=== PATIENT | female | born 1945 | race Caucasian/White ===

== ENCOUNTER 2022-03-08 15:04 | Inpatient (IN) | payer MEDICARE, OTHER, SELFPAY ==
[2022-03-08] VITALS (20 sets, daily range): BP systolic 92–128; BP diastolic 43–88; PULSE 75–86; RESP 12–23; TEMP 36.6; O2SAT 98–100; BMI 22.8
--- NOTE | ~2022-03-08 | CT_ITS ---
EXAMINATION: CTA chest PE abdomen pel DATE: 03/08/2022 17:11 INDICATION: d dimer TECHNIQUE: Computed tomography angiography (CTA) of the chest was performed with 100 mL Omnipaque-350 intravenous contrast timed to evaluate the pulmonary arteries, followed by portal venous phase imagi ng of the abdomen and pelvis. Coronal maximum intensity projection 3D-reconstructions were created by the technologist. The dose-length product (DLP) was 476.29 mGy-cm. Automated exposure control and it erative reconstruction technique were employed. COMPARISON: None. FINDINGS: CHEST: Lung parenchyma and airways: Clear. Pleura: Unremarkable. Thoracic inlet, axillae and chest wall: Unremarkable. Thoracic aorta: Normal. Mediastinum: Normal. Heart and pericardium: Normal. Coronary artery calcifications: Absent. Thoracic bones: Diffusely sclerotic bones. Pulmonary arteries: Study quality: Adequate. No pulmonary emboli detected. ABDOMEN/PELVIS: Liver: Normal. Biliary/Gallbladder: Gallbladder is absent. No bile duct dilation. Pancreas: Atrophy. Spleen: Granulomatous calcifications. Adrenals:No mass. Kidneys: No suspicious mass. Bilateral atrophy. Bilateral hypodensities that are too small to charact erize. Bilateral nonobstructing calculi. GI tract: Normal small bowel. Diffusely dilated large bowel, without wall thickening or a specific tr ansition point. Mostly fluid-filled large bowel. Appendix not visualized Mesentery/Peritoneum: No ascites, mass, or free air. Retroperitoneum: No mass. Pelvis: Pelvic organs are within normal limits. Soft Tissues: Soft tissues and body wall unremarkable. Abdominopelvic bones: Diffusely sclerotic bones. IMPRESSION: No CT evidence of acute pulmonary embolus. Acute versus chronic large bowel dilation without specific obstructing lesion or transition point identified. Fluid-filled colon as can be seen with diarrheal illness. Diffusely sclerotic bones, correlate with history of primary malignancy, hematologic maligna ncy, metabolic abnormalities or medication usage. Reviewed, dictated and finalized at location K. IMPRESSION: No CT evidence of acute pulmonary embolus. Acute versus chronic large bowel dil ation without specific obstructing lesion or transition point identified. Fluid -filled colon as can be seen with diarrheal illness. Diffusely sclerotic bones, correlate with history of primary malignancy, hematologic malignancy, metaboli c abnormalities or medication usage.
--- NOTE | ~2022-03-08 | XR_ITS ---
EXAMINATION: XR chest 1V portable Exam Date/Time: 03/08/2022 15:25 CDT HISTORY: chest pain, sob Comparison: None available. RESULT: Lines, tubes, and devices: Cholecystectomy and GE junction surgical clips. Lungs and pleura: Senescent change, otherwise clear. Cardiomediastinal silhouette: Stable. Other: No acute osseous or upper abdominal finding. IMPRESSION: No acute cardiopulmonary process. Reviewed, dictated and finalized at location K.
--- NOTE | ~2022-03-08 | XR_ITS ---
EXAM: XR shoulder RT min 2V DATE: 03/08/2022 15:36 HISTORY: pain . COMPARISON: None available. FINDINGS: Decreased mineralization. No acute fracture or dislocation. No lytic or blastic lesion. Chani int spaces are maintained. No erosion or periosteal change. Right basilar atelectasis. IMPRESSION: No acute osseous finding in the right shoulder. Reviewed, dictated and finalized at location K.
--- NOTE | ~2022-03-08 | MR_ITS ---
EXAMINATION: MR shoulder RT wo con DATE: 03/09/2022 14:59 INDICATION: Right shoulder pain. TECHNIQUE: Magnetic resonance imaging (MRI) of the right shoulder was performed without intravenous c ontrast. Sequences included axial PD-weighted FS FSE, coronal oblique PD-weighted FS FSE and T2-weigh ulysses FS FSE, and sagittal oblique T2-weighted FS FSE and T1-weighted FSE. COMPARISON: Right shoulder radiographs 03/08/2022 FINDINGS: Coracoacromial arch: The acromion undersurface is flat in morphology (type I). There is mild acromioclavicular joint osteo arthritis. There is mild subacromial/subdeltoid bursitis. Rotator cuff: There is severe tendinopathy of the conjoined portion of supraspinatus and infraspinatus tendons. The re is a partial thickness articular and bursal sided tear of the conjoined portion of supraspinatus a nd infraspinatus tendons measuring 8 mm proximal to distal by 9 mm anterior to posterior by 50% tendo n thickness. Teres minor tendon is normal. There is mild subscapularis tendinopathy. There is no asym metric fatty atrophy of the rotator cuff muscle bellies. There is edema-like marrow signal intensity involving the greater and lesser tuberosities, consistent with stress reaction. Biceps tendon and glenoid labrum: Biceps tendon is in bicipital groove. There is mild intra-articular biceps tendinopathy. There is deg eneration of the glenoid labrum without well-defined tear. Fluid: There is a small glenohumeral joint effusion. Bones/cartilage: Glenoid cartilage is normal. Humeral head cartilage is normal. IMPRESSION: 1. Partial-thickness rotator cuff tear. 2. Small glenohumeral joint effusion. 3. Mild subacromial/subdeltoid bursitis. 4. Mild acromioclavicular joint osteoarthritis. 5. Mild intra-articular biceps tendinopathy. Reviewed, dictated and finalized at location A.
--- NOTE | 2022-03-08 15:19 | ECG_ITS ---
Measurements Intervals [place] Rate: 83 P: 54 PA: 162 QRS: 2 QRSD: 92 T: 51 QT: 366 QTc: 431 Interpretive Statements SINUS RHYTHM MINIMAL Q WAVES- INFERIOR LEADS BASELINE ARTIFACT- II, III, AVF BORDERLINE ECG NO PREVIOUS ECG AVAILABLE FOR COMPARISON Electronically Signed On 03-08-2022 21:45:51 CDT by Kendall Howard D.O.
--- NOTE | 2022-03-08 15:22 | ED.GENADULT ---
HPI - General Adult General Chief complaint: Recheck/Abnormal Lab/Rx Stated complaint: dyspnea/ low BP Time Seen by Provider: 03/08/22 15:09 Source: patient, family and RN notes reviewed Mode of arrival: wheelchair Limitations: no limitations History of Present Illness HPI narrative: This is a 76 year old female with history of chronic kidney disease who presents for evaluation of shortness of breath and right shoulder pain. Patient woke up with right shoulder pain 4 days ago. Her pain radiates down her arm and it has been constant. This pain is worse with movement but she denies any injury . She also reports shortness of breath that has been present with exertion for 3 weeks. Her states patient's has been fatigue and snippy for 1-2 weeks. She started to complain of pressure pain in her midback and chest pain yesterday that has been intermittent. She was not feeling well today so she called her grand daughter to her home. They report her blood pressure in both arms were 80/50 so she came to ER. Related Data Allergies Allergy/AdvReac Type Severity Reaction Status Date / Time ciprofloxacin [From Cipro] Allergy Intermediate unknown Verified 03/08/22 15:19 penicillin G Allergy Unknown unknown Verified 03/08/22 15:19 Review of Systems Review of Systems: All systems reviewed & are unremarkable except as noted in HPI and below Constitutional: Constitutional: Denies chills, Reports fatigue and Denies fever(s) Cardiovascular: Cardiovascular: Denies chest pain Respiratory: Respiratory: Denies chest congestion, Denies cough and Reports dyspnea Gastrointestinal: Gastrointestinal: Denies abdominal pain, Reports nausea and Denies vomiting Musculoskeletal: Musculoskeletal: Reports back pain [facility] Past Medical History Medical History (Updated 03/08/22 @ 18:52 by Echo Kumar MD) Chronic kidney disease Surgical History Surgical History (Updated 03/08/22 @ 16:02 by Echo Kumar MD) History of cholecystectomy Social History Social History (Updated 07/25/20 @ 10:50 by Reina Elizondo CMA) Smoking status: Never smoker Second hand tobacco smoke exposure: No Alcohol intake: never Substance use: never Substance use type: does not use Exam Const: General: alert Nutritional Appearance: thin Orientation/consciousness: patient oriented x3 Limitations: no limitations HENMT: Head: normal to inspection Eyes: EOM: EOMs intact bilaterally Resp: Effort & Inspection: normal respiratory effort Auscultation: clear to auscultation bilaterally Cardio: Rate: regular rate Rhythm: regular rhythm Heart sounds: no murmurs GI: GI Palp: Yes Soft to palpation, Yes Tenderness to palpation present (GI) (RUQ, epigastric) and No Guarding due to palpation present (GI) Auscultation: normal bowel sounds Back/Spine/Pelvis: Back: no CVA tenderness Skin: General skin exam: normal color Rashes: no rashes Wounds: no wounds Neuro: General: patient oriented x3, moves all extremities and CN's II-XI intact bilaterally Extrem: General: no pedal edema Other: bilateral brachial palpable pulses Psych: Mental Status: mental status grossly normal Affect: normal affect Course Reevaluation(s) Reevaluation #1: I Discussed with patient that she was found to have some electrolyte abnormalities and will be admitted for supplementation. 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 I Discussed case with Lanny who accepts to service. Date: 03/08/22 Time: 18:00 Vital Signs Vital signs: Vital Signs Pulse Rate 86 03/08/22 15:08 Respiratory Rate 18 03/08/22 15:08 Blood Pressure 128/64 03/08/22 15:08 Pulse Oximetry 99 03/08/22 15:08 Oxygen Delivery Room Air 03/08/22 15:08 Pulse Rate 79 03/08/22 18:47 Respiratory Rate 18 03/08/22 18:47 Blood Pressure 112/62 03/08/22 18:47 Pulse Oximetry 100 03/08/22 18:47 Oxygen Delivery Room Air
[2022-03-08 15:27] LABS: Basophils Percent Auto 0.3 % (0.2-1.2); Eosinophils Percent Auto 0.7 % (0-4.4); Hemoglobin 10.4 g/dL (12.0-15.0); Immature Granulocyte Absolute 0.04 K/mm3 (0.00-0.031); Immature Granulocyte Percent A 0.7 % (0-0.5); Lymphocytes Absolute Auto 0.86 K/mm3 (0.9-3.2); Mean Corpuscular HGB Conc 30.6 g/dl (32-36); Mean Corpuscular Volume 101.5 fl (80-100); Mean Platelet Volume 9.8 fl (7.4-10.4); Monocytes Absolute Auto 0.4 K/mm3 (0.1-0.6); Monocytes Percent Auto 5.7 % (2.6-8.5); Neutrophils Absolute Auto 4.8 K/mm3 (1.3-6.7); Neutrophils Percent Auto 78.6 % (45.5-73.1); Platelet Count Result 181 k/mm3 (150-375); Red Blood Count 3.35 M/mm3 (4.2-5.4); Red Cell Distribution Width 14.2 % (11.5-14.5); White Blood Count 6.1 K/mm3 (4.5-10.0)
[2022-03-08] MEDS: ONDANSETRON INJ 4 MG/2 ML VIAL IV PUSH (15:31)
[2022-03-08] MEDS: SODIUM CHLORIDE 0.9% IV 1,000 ML 999 ML IV CONT (15:32)
[2022-03-08 15:42] LABS: Alanine Aminotransferase 32 U/L (6-35); Albumin Level 3.7 g/dL (3.5-5.1); Alkaline Phosphatase 74 U/L (38-126); Anion Gap 11 mmol/L (8-16); Aspartate Amino Transferase 26 U/L (14-36); Bilirubin,Total 0.6 mg/dL (0.2-1.3); Blood Urea Nitrogen 21 mg/dL (7-17); Calcium 7.4 mg/dL (8.4-10.2); Carbon Dioxide 17 mmol/L (22-30); Chloride 112 mmol/L (98-107); Estimated CRCL calculation 26 ml/min; Estimated Glomerular Filt Rate 37; Glucose 107 mg/dL (65-110); Lipase 127 U/L (23-300); Magnesium 0.7 mg/dL (1.6-2.3); Potassium 2.9 mmol/L (3.4-5.0); Sodium 140 mmol/L (137-145)
[2022-03-08 15:47] LABS: INR 1.5; Prothrombin Time 17.1 Seconds (11.1-14.7)
[2022-03-08 15:48] LABS: Partial Thromboplastin Time 32.9 SECONDS (22.3-36.8)
[2022-03-08 15:54] LABS: NT Pro B Type Natriuretic Pept 499 pg/mL (5-100); Troponin I < 0.012 ng/mL (0.000-0.034)
[2022-03-08 15:56] LABS: Lactic Acid Reflex 1.4 mmol/L (0.7-2.0)
[2022-03-08 16:19] LABS: Bacteria Urine Trace /hpf; Mucus Urine Rare /lpf; RBC Urine 0-2 /hpf (0-2); Squamous Epithelial Cell Urine Few /hpf (Few); WBC Urine 0-3 /hpf
[2022-03-08 16:24] LABS: SARS-CoV-2 RNA PCR Negative
[2022-03-08 16:43] LABS: D Dimer 0.63 ug/mL (<0.48)
[2022-03-08 17:07] LABS: Appearance Urine Clear (Clear); Bilirubin Urine Negative (Negative); Blood Urine Negative (Negative); Color Urine Yellow (Yellow); Glucose Urine UA Negative (Negative); Ketones Urine Negative (Negative); Leukocyte Esterase Ur Trace LEU/UL (Negative); Nitrate Urine Negative (Negative); Protein Urine Negative (Negative); Urobilinogen Urine 0.2 mg/dL (<2.0)
[2022-03-08 17:08] LABS: Add Urine Microscopic? YES
[2022-03-08] MEDS: LACTATED RINGERS 500 ML 999 ML IV CONT (17:29)
[2022-03-08] MEDS: MAGNESIUM SULFATE 3GM/D5W100ML 3 GM/100 ML BAG IVPB (17:29)
[2022-03-08] MEDS: POTASSIUM CHLORIDE 20 MEQ TABLET 40 MEQ PO (18:33)
--- NOTE | 2022-03-08 19:30 | ADMGEN ---
This patient, Adrianna Medina, was admitted to 2 Medical Room 242-01. Patient/family oriented to hospital policies and general routines including ID bracelet, bed and alarms, visiting hours, pain management, procedures, bathroom and other care routines, personal items, smoking policy, room service/diet, and visiting hours. Information on how to activate the Rapid Response Team has been discussed. Patient/Family are encouraged to report perceived risks to care and to ask questions if they do not understand what they are told or what they should do.
--- NOTE | 2022-03-08 19:59 | PC.NURSE ---
PT STATES THE ONLY MEDS SHE TAKES AT HOME EVERYDAY ARE VITAMINS. MAGNESIUM, POTASSIUM, CALCIUM, VIT A, AND D3. SHE IS UNSURE OF THE DOSAGES ON MOST OF THEM BUT IS HAVING A FAMILY MEMBER CHECK TO GET CORRECT DOSE FOR MED REC.
[2022-03-08] MEDS: SODIUM CHLORIDE 0.9% IV 1,000 ML 125 ML IV CONT (20:13)
[2022-03-09] VITALS (11 sets, daily range): BP systolic 96–109; BP diastolic 51–59; PULSE 64–78; RESP 16–18; TEMP 36.2–36.7; O2SAT 96–100
--- NOTE | 2022-03-09 04:03 | PM.IMHP ---
H&P: HPI History of Present Illness Date/Time: 03/09/22 04:03 Chief Complaint: Generalized weakness Narrative: Patient is a 76 year old female with a past medical history of CKD and anxiety who presented to the ED with complaints of right arm pain, shortness of breath, intermittent chest pain, and generalized weakness. Patient stated that all started about a couple weeks ago. She stated that her right arm was starting to feel have a and she was very tired. Patient stated the pain intensity has gotten worse over the last 4 days. Pain was starting to go to her midback as well. She at 1st that she had COVID so she was resting and drinking plenty of fluids. She was having shortness of breath with intermittent chest pain she stated that her chest pain was sternal in nature imaged, go very quickly. She also stated that she would get very lightheaded and dizzy when she got up to walk around. She finally came in to get evaluated after she could move her arms and the pain got really intense. She denies having any palpitations, nausea, vomiting, diarrhea, constipation, vision changes, hearing changes, headache, cough. Upon arrival patient was noted to have a potassium of 2.9 a magnesium of 0.7. BNP is elevated of 499. D-dimer is also elevated and CTA of the chest abdomen and pelvis was performed which did not indicate any pulmonary embolism but did show large bowel dilatation. Patient is being admitted to the hospitalist service in observation Review of Systems Review of Systems: All systems reviewed & are unremarkable except as noted in HPI and below PMFSH Past Medical History Medical History (Updated 03/09/22 @ 04:23 by JANES Ross) Chronic kidney disease Surgical History Surgical History (Updated 03/08/22 @ 16:02 by Echo Kumar MD) History of cholecystectomy Family History Family History (Updated 03/08/22 @ 19:40 by Maxine Kruse RN) Son Kidney transplant recipient Mother Heart failure Father Heart failure Social History Social History (Updated 07/25/20 @ 10:50 by Reina Elizondo CMA) Smoking status: Never smoker Second hand tobacco smoke exposure: No Alcohol intake: never Substance use: never Substance use type: does not use Spiritual care concerns: No Meds Home Medications and Allergies Home Medications Medication Instructions Recorded Confirmed Type alprazolam 0.25 mg tablet 0.25 mg PO PRN PRN Anxiety 03/08/22 03/08/22 History cholecalciferol (vitamin D3) 125 1 unit PO TID 03/08/22 03/08/22 History mcg (5,000 unit) tablet (Vitamin D3) Allergies Allergy/AdvReac Type Severity Reaction Status Date / Time ciprofloxacin [From Cipro] Allergy Intermediate unknown Verified 03/08/22 15:19 penicillin G Allergy Unknown unknown Verified 03/08/22 15:19 Vital Signs Vital Signs - 24 hr 03/08/22 15:08 03/08/22 15:10 03/08/22 15:16 Temperature Pulse Rate 86 86 82 Respiratory Rate 18 16 12 Blood Pressure 128/64 128/64 100/64 Pulse Oximetry 99 99 100 Oxygen Delivery Room Air 03/08/22 15:31 03/08/22 15:46 03/08/22 17:15 Temperature Pulse Rate 77 77 78 Respiratory Rate 15 22 H 18 Blood Pressure 120/57 L 110/88 106/43 L Pulse Oximetry 100 98 100 Oxygen Delivery 03/08/22 18:35 03/08/22 16:15 03/08/22 17:14 Temperature Pulse Rate 80 75 81 Respiratory Rate 18 20 18 Blood Pressure 112/62 115/50 L Pulse Oximetry 100 100 100 Oxygen Delivery 03/08/22 17:16 03/08/22 17:31 03/08/22 17:46 Temperature Pulse Rate 82 79 80 Respiratory Rate 18 16 23 H Blood Pressure 106/43 L 106/65 105/49 L Pulse Oximetry 100 100 100 Oxygen Delivery 03/08/22 18:01 03/08/22 18:16 03/08/22 18:30 Temperature Pulse Rate 80 81 79 Respiratory Rate 12 19 12 Blood Pressure 92/54 L 98/66 L Pulse Oximetry 99 Oxygen Delivery 03/08/22 18:31 03/08/22 18:47 03/08/22 20:06 Temperature Pulse Rate 78 79 75 Respiratory
[2022-03-09] MEDS: SODIUM CHLORIDE 0.9% IV 1,000 ML 125 ML IV CONT ×2 (04:07→12:10)
[2022-03-09 05:48] LABS: Immature Reticulocyte Fraction 21.3 % (3.0-15.9); Reticulocyte Hemoglobin Conten 31.7 pg (28.2-35.7); Reticulocyte Percent 4.42 % (0.7-4.3); Reticulocytes Absolute 0.12 B/L (32.2-175.7)
[2022-03-09 05:54] LABS: Transferrin 138 mg/dL (206-381)
[2022-03-09 06:01] LABS: Iron 27 ug/dL (37-170)
[2022-03-09 06:11] LABS: Percent Iron Saturation 12 % (20-50)
[2022-03-09 06:50] LABS: Folic Acid 15.1 ng/mL (2.76->20)
[2022-03-09 08:24] LABS: Creatinine Urine 33.1 mg/dL; Urea Random Urine 273 MG/DL
[2022-03-09 08:25] LABS: Sodium Urine Random 101 meq/L
[2022-03-09] MEDS: ENOXAPARIN 30 MG/0.3 ML SYRINGE SUB-Q (08:52)
[2022-03-09 12:06] LABS: Hematocrit 28.8 % (37.0-47.0); Hemoglobin 8.5 g/dL (12.0-15.0); Mean Corpuscular HGB Conc 29.5 g/dl (32-36); Mean Corpuscular Hemoglobin 31.4 pg (26-34); Mean Corpuscular Volume 106.3 fl (80-100); Mean Platelet Volume 10.2 fl (7.4-10.4); Platelet Count Result 150 k/mm3 (150-375); Red Blood Count 2.71 M/mm3 (4.2-5.4); Red Cell Distribution Width 14.5 % (11.5-14.5); White Blood Count 3.3 K/mm3 (4.5-10.0)
[2022-03-09 12:22] LABS: Anion Gap 5 mmol/L (8-16); Blood Urea Nitrogen 17 mg/dL (7-17); Calcium 6.8 mg/dL (8.4-10.2); Carbon Dioxide 13 mmol/L (22-30); Chloride 123 mmol/L (98-107); Estimated CRCL calculation 32 ml/min; Estimated Glomerular Filt Rate 48; Glucose 85 mg/dL (65-110); Magnesium 1.6 mg/dL (1.6-2.3); Potassium 3.7 mmol/L (3.4-5.0); Sodium 141 mmol/L (137-145)
--- NOTE | 2022-03-09 13:28 | P.PNIM_ITS ---
Progress Note: A&P Assessment and Plan (1) Hypomagnesemia: Code(s): E83.42 - Hypomagnesemia Status: Acute Assessment and Plan: * Mg 0.7 * Replaced with 3gm IV * Repeat in the am * Trend labs * Replace as indicated 03/09/2022 interval history: patient with c/o right shoulder patient stats worse with movement and unable to do any ROM as it is very painful, denies any trauma or injury and patient does not work will do MRI of the shoulder to further evaluate and will consult for further recommendations, also c/o being tired and fatigue patient stats over 40years ago patient had bariatric surgery to loose wt, since then more tired and fatigue, patient has iron deficiency anemia, will give iron IV, will start patient on banana bag with IV vitamins, will have PT/OT evaluate and treatment patient. will monitor and further recommendation to follow. (2) Hypokalemia: Code(s): E87.6 - Hypokalemia Status: Acute Assessment and Plan: * K is 2.9 * Replaced with 40mcg PO * Repeat in the am * Trend labs * Replace as indicated (3) Chest pain: Code(s): R07.9 - Chest pain, unspecified Status: Acute Assessment and Plan: * Intermittent sternal chest pain * Trops are negative * BNP 499 * EKG SR with maybe a Q wave * Echo ordered * Wonder if she has a component of CHF * Tele monitoring (4) Anemia: Code(s): D64.9 - Anemia, unspecified Status: Acute Assessment and Plan: * Current H/H 10.4/34.0 * Check anemia labs * Supplement as indicated * Transfuse if Hgb <7 * Trend labs (5) CKD (chronic kidney disease): Code(s): N18.9 - Chronic kidney disease, unspecified Status: Acute Assessment and Plan: * Current BUN/Cr 21/1.40 * Currently IV fluids running * Trend labs * Unknown baseline * No complaints of urinary problems * Urine electrolytes ordered * Consider a nephrology consult (6) Abnormal CT of the abdomen: Code(s): R93.5 - Abnormal findings on diagnostic imaging of other abdominal regions, including retroperitoneum Status: Acute Assessment and Plan: * Shows acute on chronic fluid filled colon * Probably the cause of the electrolyte abnormality * IV fluids currently on board * Trend labs Subjective Date/time seen: 03/09/22 13:28 HPI Narrative: Patient is a 76 year old female with a past medical history of CKD and anxiety who presented to the ED with complaints of right arm pain, shortness of breath, intermittent chest pain, and generalized weakness.? Patient stated that all started about a couple weeks ago.? She stated that her right arm was starting to feel have a and she was very tired.? Patient stated the pain intensity has g lev worse over the last 4 days.? Pain was starting to go to her midback as well.? She at 1st that she had COVID so she was resting and drinking plenty of fluids.? She was having shortness of breath with intermittent chest pain she stated that her chest pain was sternal in nature imaged, go very quickly.? She also stated that she would get very lightheaded and dizzy when she got up to walk around.? She finally came in to get evaluated after she could move her arms and the pain got really intense.? She denies having any palpitations, nausea, vomiting, diarrhea, constipation, vision changes, hearing changes, headache, cough.? Upon arrival patient was noted to have a potassium of 2.9
--- NOTE | 2022-03-09 13:28 | PM.IMPN ---
Progress Note: A&P Assessment and Plan (1) Hypomagnesemia: Code(s): E83.42 - Hypomagnesemia Status: Acute Assessment and Plan: Mg 0.7 Replaced with 3gm IV Repeat in the am Trend labs Replace as indicated 03/09/2022 interval history: patient with c/o right shoulder patient stats worse with movement and unable to do any ROM as it is very painful, denies any trauma or injury and patient does not work will do MRI of the shoulder to further evaluate and will consult for further recommendations, also c/o being tired and fatigue patient stats over 40years ago patient had bariatric surgery to loose wt, since then more tired and fatigue, patient has iron deficiency anemia, will give iron IV, will start patient on banana bag with IV vitamins, will have PT/OT evaluate and treatment patient. will monitor and further recommendation to follow. (2) Hypokalemia: Code(s): E87.6 - Hypokalemia Status: Acute Assessment and Plan: K is 2.9 Replaced with 40mcg PO Repeat in the am Trend labs Replace as indicated (3) Chest pain: Code(s): R07.9 - Chest pain, unspecified Status: Acute Assessment and Plan: Intermittent sternal chest pain Trops are negative BNP 499 EKG SR with maybe a Q wave Echo ordered Wonder if she has a component of CHF Tele monitoring (4) Anemia: Code(s): D64.9 - Anemia, unspecified Status: Acute Assessment and Plan: Current H/H 10.4/34.0 Check anemia labs Supplement as indicated Transfuse if Hgb <7 Trend labs (5) CKD (chronic kidney disease): Code(s): N18.9 - Chronic kidney disease, unspecified Status: Acute Assessment and Plan: Current BUN/Cr 21/1.40 Currently IV fluids running Trend labs Unknown baseline No complaints of urinary problems Urine electrolytes ordered Consider a nephrology consult (6) Abnormal CT of the abdomen: Code(s): R93.5 - Abnormal findings on diagnostic imaging of other abdominal regions, including retroperitoneum Status: Acute Assessment and Plan: Shows acute on chronic fluid filled colon Probably the cause of the electrolyte abnormality IV fluids currently on board Trend labs Subjective Date/time seen: 03/09/22 13:28 HPI Narrative: Patient is a 76 year old female with a past medical history of CKD and anxiety who presented to the ED with complaints of right arm pain, shortness of breath, intermittent chest pain, and generalized weakness.? Patient stated that all started about a couple weeks ago.? She stated that her right arm was starting to feel have a and she was very tired.? Patient stated the pain intensity has gotten worse over the last 4 days.? Pain was starting to go to her midback as well.? She at 1st that she had COVID so she was resting and drinking plenty of fluids.? She was having shortness of breath with intermittent chest pain she stated that her chest pain was sternal in nature imaged, go very quickly.? She also stated that she would get very lightheaded and dizzy when she got up to walk around.? She finally came in to get evaluated after she could move her arms and the pain got really intense.? She denies having any palpitations, nausea, vomiting, diarrhea, constipation, vision changes, hearing changes, headache, cough.? Upon arrival patient was noted to have a potassium of 2.9 a magnesium of 0.7.? BNP is elevated of 499.? D-dimer is also elevated and CTA of the chest abdomen and pelvis was performed which did not indicate any pulmonary embolism but did show large bowel dilatation. 03/09/2022 interval history: patient with c/o right shoulder patient stats worse with movement and unable to do any ROM as it is very painful, denies any trauma or injury and patient does not work will do MRI of the shoulder to further evaluate and will consult for further recommendations, also c/o being
[2022-03-09] MEDS: CHOLECALCIFEROL 1,000 UNITS TABLET 5000 UNITS PO ×2 (13:39→17:01)
--- NOTE | 2022-03-09 14:52 | PCPTNOTE ---
Attempted to see pt. for physical therapy evaluation. Pt. away from room at this time for testing. Will follow.
--- NOTE | 2022-03-09 14:52 | PCOTNOTE ---
Attempted to see pt. for occupational therapy evaluation. Pt. away from room at this time for testing. Will follow.
[2022-03-09] MEDS: THIAMINE HCL INJ 100 MG, FOLIC ACID INJ 1 MG, MULTIVITAMINS-12 INJ VIAL 1 5 ML, MULTIVI... IV CONT (17:02)
[2022-03-10] VITALS (7 sets, daily range): BP systolic 101–110; BP diastolic 55–56; PULSE 61–82; RESP 16–20; TEMP 35.8–36.8; O2SAT 98–100
[2022-03-10] MEDS: SODIUM CHLORIDE 0.9% IV 1,000 ML 125 ML IV CONT ×2 (03:10→12:14)
[2022-03-10 05:48] LABS: Basophils Percent Auto 0.3 % (0.2-1.2); Eosinophils Absolute Auto 0.1 K/mm3 (0-0.3); Eosinophils Percent Auto 3.4 % (0-4.4); Hemoglobin 8.4 g/dL (12.0-15.0); Immature Granulocyte Absolute 0.04 K/mm3 (0.00-0.031); Immature Granulocyte Percent A 1.4 % (0-0.5); Lymphocytes Absolute Auto 0.82 K/mm3 (0.9-3.2); Lymphocytes Percent Auto 28.3 % (18.3-44.2); Mean Corpuscular Hemoglobin 31.1 pg (26-34); Mean Corpuscular Volume 107.4 fl (80-100); Monocytes Absolute Auto 0.2 K/mm3 (0.1-0.6); Monocytes Percent Auto 6.2 % (2.6-8.5); Neutrophils Absolute Auto 1.8 K/mm3 (1.3-6.7); Neutrophils Percent Auto 60.4 % (45.5-73.1); Platelet Count Result 142 k/mm3 (150-375); Red Cell Distribution Width 14.4 % (11.5-14.5); White Blood Count 2.9 K/mm3 (4.5-10.0)
[2022-03-10 06:11] LABS: Alanine Aminotransferase 20 U/L (6-35); Albumin Level 2.5 g/dL (3.5-5.1); Alkaline Phosphatase 60 U/L (38-126); Anion Gap 8 mmol/L (8-16); Aspartate Amino Transferase 19 U/L (14-36); Bilirubin,Total 0.4 mg/dL (0.2-1.3); Blood Urea Nitrogen 10 mg/dL (7-17); Calcium 6.7 mg/dL (8.4-10.2); Carbon Dioxide 16 mmol/L (22-30); Chloride 119 mmol/L (98-107); Estimated CRCL calculation 36 ml/min; Estimated Glomerular Filt Rate 54; Glucose 81 mg/dL (65-110); Magnesium 1.8 mg/dL (1.6-2.3); Potassium 3.6 mmol/L (3.4-5.0); Sodium 143 mmol/L (137-145)
[2022-03-10 07:10] LABS: Platelet Estimate Adequate (Adequate)
[2022-03-10 07:11] LABS: Hypochromasia 1+ (NORMAL); Ovalocytes 1+ (NORMAL); Tear Drop Cells 1+ (NORMAL)
--- NOTE | 2022-03-10 08:13 | PCOTNOTE ---
Spoke with pt., who is managing R shoulder pain at home with adequate safety awareness and compensatory strategies to limit further injury prior to seeking outpatient medical treatment and therapeutic services. Confirmed with hospitalist, canceling orders for evaluation and recommending continued services in outpatient. Re-order if treatment plan changes.
--- NOTE | 2022-03-10 08:22 | PCPTNOTE ---
Patient independent in room. Per OT: Hospitalist KAYLYN DC of therapy orders.
[2022-03-10] MEDS: ENOXAPARIN 30 MG/0.3 ML SYRINGE SUB-Q (09:41)
[2022-03-10] MEDS: CHOLECALCIFEROL 1,000 UNITS TABLET 5000 UNITS PO ×2 (09:41→12:15)
--- NOTE | 2022-03-10 11:18 | PCDIET ---
Dietitian consult per nursing request. Patient states about 40 years ago she had bariatric surgery. She states to have lost about 12 ibs in the past 18 months. Current diet order is regular. At home she eats smaller more frequent meals. Lunch order taken today with dry food products mixer planer operator, snacks included. She also drinks Ensure at home. MD orders for Ensure Enlive TID providing an additional 350 kcals and 20 gms protein. Agree with diet orders. No further nutritional interventions needed.
--- NOTE | 2022-03-10 15:05 | P.DS_ITS ---
DS: Admitting Diagnosis Discharge Date 03/10/2022 Admitting Diagnosis generalized weakness DS: Discharge Diagnosis Discharge Diagnosis (1) Hypomagnesemia: Code(s): E83.42 - Hypomagnesemia Status: Acute Assessment and Plan: * Mg 0.7 * Replaced with 3gm IV * Repeat in the am * Trend labs * Replace as indicated 03/09/2022 interval history: patient with c/o right shoulder patient stats worse with movement and unable to do any ROM as it is very painful, denies any trauma or injury and patient does not work will do MRI of the shoulder to further evaluate and will consult for further recommendations, also c/o being tired and fatigue patient stats over 40years ago patient had bariatric surgery to loose wt, since then more tired and fatigue, patient has iron deficiency anemia, will give iron IV, will start patient on banana bag with IV vitamins, will have PT/OT evaluate and treatment patient. will monitor and further recommendation to follow. (2) Hypokalemia: Code(s): E87.6 - Hypokalemia Status: Acute Assessment and Plan: * K is 2.9 * Replaced with 40mcg PO * Repeat in the am * Trend labs * Replace as indicated (3) Chest pain: Code(s): R07.9 - Chest pain, unspecified Status: Acute Assessment and Plan: * Intermittent sternal chest pain * Trops are negative * BNP 499 * EKG SR with maybe a Q wave * Echo ordered * Wonder if she has a component of CHF * Tele monitoring (4) Anemia: Code(s): D64.9 - Anemia, unspecified Status: Acute Assessment and Plan: * Current H/H 10.4/34.0 * Check anemia labs * Supplement as indicated * Transfuse if Hgb <7 * Trend labs (5) CKD (chronic kidney disease): Code(s): N18.9 - Chronic kidney disease, unspecified Status: Acute Assessment and Plan: * Current BUN/Cr 21/1.40 * Currently IV fluids running * Trend labs * Unknown baseline * No complaints of urinary problems * Urine electrolytes ordered * Consider a nephrology consult (6) Abnormal CT of the abdomen: Code(s): R93.5 - Abnormal findings on diagnostic imaging of other abdominal regions, including retroperitoneum Status: Acute Assessment and Plan: * Shows acute on chronic fluid filled colon * Probably the cause of the electrolyte abnormality * IV fluids currently on board * Trend labs DS: Summary Hospital Course Reason for hospitalization: Generalized weakness Narrative: Patient is a 76 year old female with a past medical history of CKD and anxiety who presented to the ED with complaints of right arm pain, shortness of breath, intermittent chest pain, and generalized weakness.? Patient stated that all started about a couple weeks ago.? She stated that her right arm was starting to feel have a and she was very tired.? Patient stated the pain intensity has gotten worse over the last 4 days.? Pain was starting to go to her midback as well.? She at 1st that she had COVID so she was resting and drinking plenty of fluids.? She was having shortness of breath with intermittent chest pain she stated that her chest pain was sternal in nature imaged, go very quickly.? She also stated that she would get very lightheaded and dizzy when she got up to walk around.? She finally came in to get evaluated after she could move her arms and the pain got really intense.? She denies having any palpitations, n
--- NOTE | 2022-03-10 15:05 | PM.DS ---
DS: Admitting Diagnosis Discharge Date 03/10/2022 Admitting Diagnosis generalized weakness DS: Discharge Diagnosis Discharge Diagnosis (1) Hypomagnesemia: Code(s): E83.42 - Hypomagnesemia Status: Acute Assessment and Plan: Mg 0.7 Replaced with 3gm IV Repeat in the am Trend labs Replace as indicated 03/09/2022 interval history: patient with c/o right shoulder patient stats worse with movement and unable to do any ROM as it is very painful, denies any trauma or injury and patient does not work will do MRI of the shoulder to further evaluate and will consult for further recommendations, also c/o being tired and fatigue patient stats over 40years ago patient had bariatric surgery to loose wt, since then more tired and fatigue, patient has iron deficiency anemia, will give iron IV, will start patient on banana bag with IV vitamins, will have PT/OT evaluate and treatment patient. will monitor and further recommendation to follow. (2) Hypokalemia: Code(s): E87.6 - Hypokalemia Status: Acute Assessment and Plan: K is 2.9 Replaced with 40mcg PO Repeat in the am Trend labs Replace as indicated (3) Chest pain: Code(s): R07.9 - Chest pain, unspecified Status: Acute Assessment and Plan: Intermittent sternal chest pain Trops are negative BNP 499 EKG SR with maybe a Q wave Echo ordered Wonder if she has a component of CHF Tele monitoring (4) Anemia: Code(s): D64.9 - Anemia, unspecified Status: Acute Assessment and Plan: Current H/H 10.4/34.0 Check anemia labs Supplement as indicated Transfuse if Hgb <7 Trend labs (5) CKD (chronic kidney disease): Code(s): N18.9 - Chronic kidney disease, unspecified Status: Acute Assessment and Plan: Current BUN/Cr 21/1.40 Currently IV fluids running Trend labs Unknown baseline No complaints of urinary problems Urine electrolytes ordered Consider a nephrology consult (6) Abnormal CT of the abdomen: Code(s): R93.5 - Abnormal findings on diagnostic imaging of other abdominal regions, including retroperitoneum Status: Acute Assessment and Plan: Shows acute on chronic fluid filled colon Probably the cause of the electrolyte abnormality IV fluids currently on board Trend labs DS: Summary Hospital Course Reason for hospitalization: Generalized weakness Narrative: Patient is a 76 year old female with a past medical history of CKD and anxiety who presented to the ED with complaints of right arm pain, shortness of breath, intermittent chest pain, and generalized weakness.? Patient stated that all started about a couple weeks ago.? She stated that her right arm was starting to feel have a and she was very tired.? Patient stated the pain intensity has gotten worse over the last 4 days.? Pain was starting to go to her midback as well.? She at 1st that she had COVID so she was resting and drinking plenty of fluids.? She was having shortness of breath with intermittent chest pain she stated that her chest pain was sternal in nature imaged, go very quickly.? She also stated that she would get very lightheaded and dizzy when she got up to walk around.? She finally came in to get evaluated after she could move her arms and the pain got really intense.? She denies having any palpitations, nausea, vomiting, diarrhea, constipation, vision changes, hearing changes, headache, cough.? Upon arrival patient was noted to have a potassium of 2.9 a magnesium of 0.7.? BNP is elevated of 499.? D-dimer is also elevated and CTA of the chest abdomen and pelvis was performed which did not indicate any pulmonary embolism but did show large bowel dilatation. Hospital Course: patient with c/o right shoulder patient stats worse with movement and unable to do any ROM as it is very painful, denies any trauma or injury and patient d
[2022-03-12 13:42] LABS: Osmolality, Urine 386 mOsm/kg (50-1200)
== END 2022-03-10 16:15 | disposition home or self-care (01) | DRG 641 ==
LOC: ANHED 17:58 → ANH2MED 18:43
PROVIDERS: Nurse Practitioner; Admitting Provider Family Medicine; Emergency Provider General Practice; PCP Internal Medicine; Visit Provider Family Medicine
DX: E83.42 Hypomagnesemia (principal); E87.6 Hypokalemia; R07.9 Chest pain, unspecified; M25.511 Pain in right shoulder; D50.9 Iron deficiency anemia, unspecified; N18.9 Chronic kidney disease, unspecified; R93.5 Abnormal findings on diagnostic imaging of other abdominal regions, including retroperitoneum; F41.9 Anxiety disorder, unspecified; Z20.822 Contact with and (suspected) exposure to COVID-19; Z98.84 Bariatric surgery status; Z90.49 Acquired absence of other specified parts of digestive tract
CPT/HCPCS: 36415; 71045; 71275; 73030; 73221; 74177; 80048; 80053; 81001; 82570; 82607; 82728; 82746; 83540; 83550; 83605; 83690; 83735; 83880; 83935; 84300; 84443; 84466; 84484; 84540; 85025; 85027; 85046; 85380; 85610; 85730; 93005; 96361; 96365; 96367; 96372; 96375; 99285; A9270; C9803; G0378; J1650; J1756; J2405; J3411; J3475; J7030; J7120; Q9967; U0003; U0005

== ENCOUNTER 2022-07-27 12:31 | Emergency (ER) | payer OTHER, SELFPAY ==
[2022-07-27 12:36] VITALS: BP 117/66; PULSE 91; RESP 20; TEMP 36.5; O2SAT 100
--- NOTE | 2022-07-27 12:38 | ED.EXTPRO ---
HPI - Extremity Problem General Chief complaint: Extremity Problem,Nontraumatic Stated complaint: poss blood clot right leg Time Seen by Provider: 07/27/22 12:38 Source: patient, family and RN notes reviewed History of Present Illness HPI Narrative: patient is a 77-year-old female who presents to urgent care with complaints of right lower leg pain and swelling. Patient states that she was having knee pain yesterday and developed the lower leg swelling and pain overnight. Patient states she has had some issues with chest discomfort and shortness of breath and is scheduled for both a cardiac catheterization tomorrow. Patient states she did not have any injury to the leg. Reports of increased shortness of breath on ambulation. Patient is not contacted her catholic priest regarding the current issue. States that her PCP advised her to come to our facility today. Patient is concerned for a DVT. Denies any history of blood clot and is currently not on a blood thinner. No other acute complaints. No acute distress noted. Patient aware of the plan of care. Some parts of this dictation were generated by voice recognition software and may contain typographical and/or grammatical inaccuracies. Related Data Home Medications Medication Instructions Recorded Confirmed calcium carb-vitamin D3 ER 600 mg 1 tablet PO DAILY 03/09/22 07/08/22 (1,500 mg)-500 unit tablet,ER 24 hr cholecalciferol (vitamin D3) 125 125 mcg PO TID 03/09/22 07/08/22 mcg (5,000 unit) tablet (Vitamin D3) cyanocobalamin (vitamin B-12) 1,000 mcg PO DAILY 03/09/22 07/08/22 1,000 mcg tablet (Vitamin B-12) magnesium 250 mg tablet 250 mg PO TID 03/09/22 07/08/22 potassium 99 mg tablet 99 mg PO DAILY 03/09/22 07/08/22 Allergies Allergy/AdvReac Type Severity Reaction Status Date / Time ciprofloxacin [From Cipro] Allergy Intermediate unknown Verified 07/08/22 12:53 penicillin G Allergy Unknown unknown Verified 07/08/22 12:53 Sulfa (Sulfonamide Allergy Rash Verified 07/27/22 12:37 Antibiotics) Review of Systems Review of Systems: CONSTITUTIONAL: Denies fever, chills, or sweats. EYES: Denies visual changes, redness, or discharge. ENT: Denies rhinorrhea, congestion, sore throat, or otalgia. CARDIOVASCULAR: Denies chest pain, palpitations, or edema. RESPIRATORY: reports of acute on chronic dyspnea GASTROINTESTINAL: Denies abdominal pain, nausea, vomiting, or diarrhea. GENITOURINARY: Denies dysuria or hematuria. SKIN: Denies rash or itching. MUSCULOSKELETAL: reports right lower leg swelling and pain NEUROLOGIC: Denies headache, numbness, or weakness. All other systems reviewed are negative, except as documented in HPI. [facility] Past Medical History Medical History Adhesive capsulitis of right shoulder Allergies Chronic kidney disease Kidney disease Osteoporosis Surgical History Surgical History History of cholecystectomy History of intestinal bypass Family History Family History Son Kidney transplant recipient Mother Heart failure Heart disease Father Heart failure Social History Social History Smoking status: Never smoker Second hand tobacco smoke exposure: No Alcohol intake: never Substance use: never Substance use type: does not use Living arrangements: with family Spiritual care concerns: No Comments At the time of my signature, I reviewed and agree with the nursing past medical, surgical, social, and family history. There is no relevant family history pertinent to the patient complaint. Exam Narrative: GENERAL: This is a well-nourished, well-developed patient, in no apparent distress. HEAD: normocephalic, atraumatic. EYES: PERRL. Sclera clear/white. Vision is grossly intact. EARS:
== END 2022-07-27 12:55 | disposition short-term general hospital (02) ==
PROVIDERS: Emergency Provider Nurse Practitioner Family; PCP Family Medicine
DX: M79.661 Pain in right lower leg (principal); R60.0 Localized edema; N28.9 Disorder of kidney and ureter, unspecified; M81.0 Age-related osteoporosis without current pathological fracture; Z86.2 Personal history of diseases of the blood and blood-forming organs and certain disorders involving the immune mechanism; Z79.01 Long term (current) use of anticoagulants
CPT/HCPCS: 99212; G0463